=== PATIENT | male | born 1970 | race Caucasian/White ===

== ENCOUNTER 2019-03-08 23:23 | Emergency (ER) | payer OTHER ==
[~2019-03-08] VITALS: Ht 180.3 cm; Wt 97.5 kg
[2019-03-09] MEDS ORDERED: ERYTHROMYCIN500 MG PO ×2 (00:47→00:49)
[2019-03-09] MEDS ORDERED: KETO10TA2 PO ×2 (00:48→00:49)
[2019-03-09] MEDS ORDERED: MUPIROCIN22 GM TOP ×2 (00:48→00:49)
[2019-03-09] MEDS ORDERED: GENTAK5 ML OP (00:51)
== END 2019-03-09 01:29 | disposition home or self-care (01) ==
LOC: ER 23:23
DX: S00.83XA Contusion of other part of head, initial encounter (principal); S30.201A Contusion of unspecified external genital organ, male, initial encounter; Y08.89XA Assault by other specified means, initial encounter; Y93.89 Activity, other specified; Y92.89 Other specified places as the place of occurrence of the external cause; Y99.8 Other external cause status